=== PATIENT | female | born 1985 | race Caucasian/White ===

== ENCOUNTER 2020-04-14 10:39 | Emergency (ER) | payer OTHER ==
[~2020-04-14] VITALS: Ht 185.4 cm; Wt 88.9 kg
[~2020-04-14 10:39] MED LIST: AZIT500 PO; CIPR500 PO; CLON1 PO; ERYT1OIN LEFTEYE; ESCI10 PO; HYDACE5; HYDACE5 PO; IBUP600 PO; PROM25 PO; RXHYDACE PO; SERT50; SULF10OPSA OD; Sudogest60 MG PO
[2020-04-14] MEDS ORDERED: ALBU90OI INH (15:28)
[2020-04-14] MEDS ORDERED: Mucinex600 MG PO (15:28)
== END 2020-04-14 15:35 | disposition home or self-care (01) ==
LOC: ER 10:39
DX: J40 Bronchitis, not specified as acute or chronic (principal); F41.9 Anxiety disorder, unspecified; F17.200 Nicotine dependence, unspecified, uncomplicated
CPT/HCPCS: 71046; 99283-25

== ENCOUNTER 2020-08-13 11:47 | Day surgery (SDC) | payer OTHER ==
[2020-08-11 12:51] LABS: BASOPHILS ABSOLUTE AUTO 0.08 K/mm3 (0.00-0.23); BASOPHILS PERCENT AUTO 1 % (0-2); EOSINOPHILS ABSOLUTE AUTO 0.11 K/mm3 (0.00-0.68); EOSINOPHILS PERCENT AUTO 2 % (0-6); Hematocrit 39.1 % (33.0-51.0); Hemoglobin 13.2 g/dL (11.5-16.0); IMMATURE GRAN ABSOLUTE AUTO 0.01 K/mm3 (0.00-0.10); IMMATURE GRAN PERCENT AUTO 0 % (0-1); LYMPHOCYTES ABSOLUTE AUTO 1.95 K/mm3 (0.84-5.20); LYMPHOCYTES PERCENT AUTO 31 % (21-46); MONOCYTES ABSOLUTE AUTO 0.51 K/mm3 (0.16-1.47); MONOCYTES PERCENT AUTO 8 % (4-13); Mean Corpuscular HGB 33.8 pg (26.0-34.0); Mean Corpuscular HGB Conc 33.8 g/dL (31.5-36.5); Mean Corpuscular Volume 100 fL (80-100); Mean Platelet Volume 9.8 fL (9.1-12.4); NEUTROPHILS ABSOLUTE AUTO 3.62 K/mm3 (1.96-9.15); NEUTROPHILS PERCENT AUTO 58 % (41-73); Platelet Count 280 K/mm3 (150-400); RDW Coefficient Variation 11.5 % (11.7-14.2); Red Blood Cell Count 3.91 M/mm3 (3.80-5.20); White Blood Cell Count 6.28 K/mm3 (4.00-11.30)
[2020-08-11 12:52] LABS: Alanine Aminotransfer (ALT/SGP 68 U/L (12-78); Albumin, Blood 3.7 g/dL (3.4-5.0); Alk Phos 58 U/L (50-136); Anion Gap 3 mmol/L (6-16); Aspartate Aminotrans (AST/SGOT 66 U/L (12-37); Bilirubin, Total 0.6 mg/dL (0.1-1.0); Blood Urea Nitrogen 18 mg/dL (8-24); Bun/Creatinine Ratio 26.8 (12.0-20.0); CO2, Blood 28 mmol/L (21-32); Calcium, Blood 9.4 mg/dL (8.5-10.1); Chloride, Blood 105 mmol/L (98-108); Creatinine, Blood 0.67 mg/dL (0.40-1.00); Globulin, Blood 3.7 g/dL (2.2-4.0); Glomerular Filtration Rate >60 (60-); Glucose, Blood 109 mg/dL (70-99); Potassium, Blood 4.1 mmol/L (3.5-5.5); Sodium, Blood 136 mmol/L (136-145); Total Protein, Blood 7.4 g/dL (6.4-8.2)
[~2020-08-13] VITALS: Ht 185.4 cm; Wt 102.3 kg
[~2020-08-13 11:47] MED LIST changes: +ALBU90OI INH; +Mucinex600 MG PO
--- NOTE | 2020-08-13 12:10 | NUR ---
INTO SDS ADMISSION STARTED PATIENT ATTEMPTING TO GIVE URINE SAMPLE.
--- NOTE | 2020-08-13 12:51 | NUR ---
Ambulatory in Day Surgery History, Chart, Medications and Allergies reviewed before start of procedure. Lungs clear T/O to Auscultation. Pre-Op teaching done. Pt verbalizes understanding.
--- NOTE | 2020-08-13 20:11 | NUR ---
SHIFT SUMMARY PT HAD SURGERY TODAY. VSS. TOLERATING PO. DEL ANGEL CATH OUT. REPORT GIVEN TO [place] YAÑEZ.
[2020-08-14 04:37] LABS: BASOPHILS ABSOLUTE AUTO 0.01 K/mm3 (0.00-0.23); BASOPHILS PERCENT AUTO 0 % (0-2); EOSINOPHILS PERCENT AUTO 0 % (0-6); Hematocrit 36.7 % (33.0-51.0); Hemoglobin 12.4 g/dL (11.5-16.0); IMMATURE GRAN ABSOLUTE AUTO 0.04 K/mm3 (0.00-0.10); IMMATURE GRAN PERCENT AUTO 1 % (0-1); LYMPHOCYTES ABSOLUTE AUTO 0.94 K/mm3 (0.84-5.20); LYMPHOCYTES PERCENT AUTO 11 % (21-46); MONOCYTES ABSOLUTE AUTO 0.47 K/mm3 (0.16-1.47); MONOCYTES PERCENT AUTO 6 % (4-13); Mean Corpuscular HGB Conc 33.8 g/dL (31.5-36.5); Mean Corpuscular Volume 101 fL (80-100); NEUTROPHILS PERCENT AUTO 83 % (41-73); RDW Coefficient Variation 11.5 % (11.7-14.2); RDW Standard Deviation 42.4 fL (35.1-46.3); Red Blood Cell Count 3.65 M/mm3 (3.80-5.20); White Blood Cell Count 8.36 K/mm3 (4.00-11.30)
[2020-08-14 04:44] LABS: Mean Platelet Volume 10.2 fL (9.1-12.4); Platelet Count 265 K/mm3 (150-400)
--- NOTE | 2020-08-14 04:47 | NUR ---
SHIFT SUMMARY POD1 ROBOTIC ASSISTED TOTAL LAP HYSTERECTOMY, A/O X4, VSS, TOLERATING PO FOOD/FLUIDS/MEDS, PASSING FLATUS, VOIDING WELL, AMBULATING INDEPENDENTLY, PAIN WELL MANAGED PER EMAR, NO ACUTE EVENTS THIS SHIFT. CALL LIGHT IN REACH, WILL CONTINUE TO MONITOR AND REPORT TO ONCOMING DAY RN.
[2020-08-14] MEDS ORDERED: Percocet 5-3251 EACH PO (13:22)
[2020-08-14] MEDS ORDERED: IBU800 MG PO (13:23)
[2020-08-14] MEDS ORDERED: PROM25 PO (13:24)
[2020-08-14] MEDS ORDERED: CLIMARA1 EACH PO (13:25)
[2020-08-14] MEDS ORDERED: ESTR2 PO (13:27)
--- NOTE | 2020-08-14 14:15 | NUR ---
provided pt with discharge instructions, which she states she understands, printer material/education, removed peripheral IV wnl. pt transferred to awaiting vehicle via wheelchair. pt's mother transferred pt's belongings to vehicle
== END 2020-08-14 14:10 | disposition home or self-care (01) ==
LOC: SURS 11:47 → ORSCMMR 11:47 → ORD 13:15 → SURS 17:45 → ORSCMMR 08-14 14:10
PROVIDERS: Obstetrics & Gynecology
PROC: 0UT94ZZ Resection of Uterus, Percutaneous Endoscopic Approach (ICD-10-PCS; principal; 2020-08-13 13:15)
PROC: 8E0W4CZ Robotic Assisted Procedure of Trunk Region, Percutaneous Endoscopic Approach (ICD-10-PCS; principal; 2020-08-13 13:15)
PROC: 0UT24ZZ Resection of Bilateral Ovaries, Percutaneous Endoscopic Approach (ICD-10-PCS; principal; 2020-08-13 13:15)
DX: R10.2 Pelvic and perineal pain (principal); N80.0 Endometriosis of uterus; N92.0 Excessive and frequent menstruation with regular cycle; N94.6 Dysmenorrhea, unspecified; N80.3 Endometriosis of pelvic peritoneum; Z87.891 Personal history of nicotine dependence
CPT/HCPCS: 58571; S2900; 36415; 80053; 85025; 86850; 86900; 86901; 88307; A9270; J0690; J1100; J1885; J2250; J2405; J2704; J3010; J7120

== ENCOUNTER 2023-05-26 22:19 | Emergency (ER) | payer OTHER ==
[~2023-05-26] VITALS: Ht 185.4 cm; Wt 95.2 kg
[~2023-05-26 22:19] MED LIST changes: +CLIMARA1 EACH PO; +ESTR2 PO; +IBU800 MG PO; +ONDA4ODT MM; +Percocet 5-3251 EACH PO; +SUCR1 PO
[2023-05-26 22:25] VITALS: BP 179/109
== END 2023-05-27 00:52 | disposition home or self-care (01) ==
LOC: ER 22:19
DX: G43.909 Migraine, unspecified, not intractable, without status migrainosus (principal); Z87.891 Personal history of nicotine dependence
CPT/HCPCS: 96374; 96375; 99284-25; J0780; J1200; J1885

== ENCOUNTER → 2023-11-21 | Outpatient (CLI) | payer OTHER | LOC: LAB SHORT 08:11 → LAB 08:11 | DX: D48.9 Neoplasm of uncertain behavior, unspecified (principal) | CPT/HCPCS: 88305 ==